=== PATIENT | female | born 1950 | race African-American/Black ===

== ENCOUNTER 2023-02-14 13:20 | Inpatient (IN) | payer MEDICARE, OTHER ==
[~2023-02-14] VITALS: Ht 167.6 cm; Wt 156.5 kg
[2023-02-14] VITALS (11 sets, daily range): BP systolic 96–131; BP diastolic 44–63; PULSE 75–84; RESP 16–18; TEMP 97.7–98.1; O2SAT 94–100
[2023-02-14 14:13] LABS: BASOPHILS # (AUTO) 0.1 K/uL (0.00-0.22); BASOPHILS % (AUTO) 0.4 % (0.0-2.0); EOSINOPHILS # (AUTO) 0.1 K/uL (0-0.4); EOSINOPHILS % (AUTO) 0.3 % (0.0-4.0); HEMATOCRIT 39.9 % (36-48); HEMOGLOBIN 12.2 g/dL (12.0-16.0); LYMPHOCYTES # (AUTO) 0.5 K/uL (2.5-16.5); LYMPHOCYTES % (AUTO) 3.4 % (20.5-51.1); MEAN CORPUSCULAR HEMOGLOBIN 32 pg (27-31); MEAN CORPUSCULAR HGB CONC 31 g/dL (33-37); MEAN CORPUSCULAR VOLUME 104.7 fL (80-94); MONOCYTES # (AUTO) 1.3 K/uL (0.8-1.0); NEUTROPHILS # (AUTO) 12.7 K/uL (1.8-7.7); NEUTROPHILS % (AUTO) 86.9 % (42.2-75.2); PLATELET COUNT (AUTO) 205 K/uL (140-450); RED BLOOD CELL COUNT(AUTO) 3.81 MIL/uL (4.20-5.40); RED CELL DISTRIBUTION WIDTH 16.2 % (11.6-13.7); WHITE BLOOD COUNT (AUTO) 14.7 K/uL (4.8-10.8)
[2023-02-14 14:22] LABS: ANION GAP 9.7 (8-16); CHLORIDE 96 mmol/L (98-107); CREATININE 3.8 mg/dL (0.6-1.3); GLUCOSE 194 mg/dL (74-106); POTASSIUM 3.7 mmol/L (3.5-5.1); SODIUM SERUM 134 mmol/L (136-145); UREA NITROGEN, BLOOD 38 mg/dL (7-18)
[2023-02-14 14:29] LABS: CREATINE KINASE, TOTAL 20 U/L (26-192)
[2023-02-14] MEDS ORDERED: VANCOMYCIN 1,000 MG in DEXTROSE 5% 250 ML IV ONE (14:35)
[2023-02-14] MEDS ORDERED: CEFEPIME 1,000 MG in DEXTROSE 5% 50 ML IV ONE (14:35)
[2023-02-14 14:39] LABS: BLOOD GAS PCO2 116.4 mmHg (35-45); BLOOD GAS PH 7.098 (7.35-7.45)
[2023-02-14 14:40] LABS: BLOOD GAS BASE EXCESS 1.9 mmol/L (-2.0-2.0); BLOOD GAS HCO3 35.2 mmol/L (22-26); BLOOD GAS O2 SAT% 93.9 % (92.0-98.5); BLOOD GAS PO2 73.3 mmHg (75-100)
[2023-02-14 15:02] LABS: ALBUMIN 2.6 g/dL (3.4-5.0); BILIRUBIN,DIRECT 0.1 mg/dL (0.0-0.3); TOTAL BILIRUBIN 0.3 mg/dL (0.0-1.0); TOTAL PROTEIN, SERUM 6.8 g/dL (6.4-8.2)
[2023-02-14 16:29] LABS: BLOOD GAS BASE EXCESS 4.9 mmol/L (-2.0-2.0); BLOOD GAS HCO3 26.6 mmol/L (22-26); BLOOD GAS O2 SAT% 99.1 % (92.0-98.5); BLOOD GAS PCO2 30.2 mmHg (35-45); BLOOD GAS PH 7.562 (7.35-7.45); BLOOD GAS PO2 106.6 mmHg (75-100)
[2023-02-14] MEDS ORDERED: VANCOMYCIN 1,000 MG VIAL ONE (17:04)
[2023-02-14] MEDS ORDERED: CEFEPIME 1,000 MG VIAL ONE (17:05)
[2023-02-14 17:37] LABS: LACTIC ACID 1.1 mmol/L (0.4-2.0)
[2023-02-14 17:40] LABS: FLU A ANTIGEN negative (NEGATIVE); FLU B ANTIGEN NEGATIVE (NEGATIVE)
[2023-02-14 17:58] LABS: INR 0.93 (0.8-1.2); PARTIAL THROMBOPLASTIN TIME 29.3 secs (22-35.6); PROTHROMBIN TIME 9.8 secs (10.8-13.4)
[2023-02-14] MEDS ORDERED: NACL 0.9% 500 ML IV ONE (18:25)
[2023-02-14] MEDS ORDERED: VANCOMYCIN PER PHARMACY MC PRN (18:45)
[2023-02-14] MEDS ORDERED: HYDROcodone/APAP 5/325 MG 1 TAB TAB PO PRN (18:45)
[2023-02-14] MEDS ORDERED: ACETAMINOPHEN 325 MG TAB PO PRN ×2 (18:45→18:55)
[2023-02-14] MEDS ORDERED: LORazepam 2 MG/ML VIAL IVP PRN (18:55)
[2023-02-14] MEDS ORDERED: POTASSIUM CHLORIDE 10 MEQ TABER PO PRN (18:55)
[2023-02-14] MEDS ORDERED: MAG SULF 2000 MG/WATER PREMIX 50 ML IV PRN (18:55)
[2023-02-14] MEDS ORDERED: ONDANSETRON 4 MG/2 ML VIAL IVP PRN (18:55)
[2023-02-14] MEDS ORDERED: DEXTROSE 50% 50 ML SYR IVP PRN (19:00)
[2023-02-14] MEDS: NACL 0.9% 1,000 ML IV SCH (20:44)
[2023-02-14] MEDS: BLOOD GLUCOSE MONITORING 1 DEV DEV FS SCH (21:00)
[2023-02-14 21:06] LABS: LACTIC ACID 3.5 mmol/L (0.4-2.0)
[2023-02-14 22:22] LABS: BLOOD GAS PCO2 31.4 mmHg (35-45); BLOOD GAS PH 7.552 (7.35-7.45); BLOOD GAS PO2 63.5 mmHg (75-100)
[2023-02-14 22:23] LABS: BLOOD GAS O2 SAT% 96.4 % (92.0-98.5)
[2023-02-15] VITALS (17 sets, daily range): BP systolic 88–133; BP diastolic 44–75; PULSE 69–90; RESP 16–33; TEMP 96.9–97.5; O2SAT 94–100
[2023-02-15 06:02] LABS: BASOPHILS # (AUTO) 0.1 K/uL (0.00-0.22); BASOPHILS % (AUTO) 0.7 % (0.0-2.0); EOSINOPHILS # (AUTO) 0.1 K/uL (0-0.4); EOSINOPHILS % (AUTO) 1.3 % (0.0-4.0); HEMATOCRIT 34.4 % (36-48); HEMOGLOBIN 11.3 g/dL (12.0-16.0); LYMPHOCYTES # (AUTO) 1.8 K/uL (2.5-16.5); LYMPHOCYTES % (AUTO) 16.6 % (20.5-51.1); MEAN CORPUSCULAR HEMOGLOBIN 33 pg (27-31); MEAN CORPUSCULAR HGB CONC 33 g/dL (33-37); MEAN CORPUSCULAR VOLUME 100.9 fL (80-94); MONOCYTES # (AUTO) 0.9 K/uL (0.8-1.0); MONOCYTES % (AUTO) 7.9 % (1.7-9.3); NEUTROPHILS # (AUTO) 7.9 K/uL (1.8-7.7); NEUTROPHILS % (AUTO) 73.5 % (42.2-75.2); PLATELET COUNT (AUTO) 206 K/uL (140-450); RED BLOOD CELL COUNT(AUTO) 3.41 MIL/uL (4.20-5.40); WHITE BLOOD COUNT (AUTO) 10.8 K/uL (4.8-10.8)
[2023-02-15 06:32] LABS: ALANINE AMINOTRANSFERASE 11 U/L (12-78); ALBUMIN 2.1 g/dL (3.4-5.0); ALKALINE PHOSPHATASE 107 U/L (50-136); ANION GAP 14.7 (8-16); ASPARTATE AMINOTRANSFERASE 13 U/L (15-37); CALCIUM 8.2 mg/dL (8.5-10.1); CARBON DIOXIDE 29.4 mmol/L (21-32); CHLORIDE 97 mmol/L (98-107); CREATININE 4.3 mg/dL (0.6-1.3); GLUCOSE 147 mg/dL (74-106); MAGNESIUM 2.8 mg/dL (1.8-2.4); PHOSPHORUS 1.2 mg/dL (2.5-4.9); POTASSIUM 3.1 mmol/L (3.5-5.1); SODIUM SERUM 138 mmol/L (136-145); TOTAL BILIRUBIN 0.6 mg/dL (0.0-1.0); TOTAL PROTEIN, SERUM 5.9 g/dL (6.4-8.2); UREA NITROGEN, BLOOD 45 mg/dL (7-18)
[2023-02-15 06:43] LABS: LACTIC ACID 1.8 mmol/L (0.4-2.0)
[2023-02-15] MEDS: BLOOD GLUCOSE MONITORING 1 DEV DEV FS SCH ×4 (07:55→21:13)
[2023-02-15] MEDS: INSULIN LISPRO SLIDING SCALE 100 UNITS/ML VIAL SUBQ PRN ×3 (07:56→21:14)
[2023-02-15] MEDS: NACL 0.9% 1,000 ML IV SCH ×2 (08:29→23:36)
[2023-02-15] MEDS ORDERED: CEFEPIME 1,000 MG in DEXTROSE 5% 50 ML IV SCH (09:00)
[2023-02-15] MEDS ORDERED: POTASSIUM PHOSPHATE 15 MM in NACL 0.9% 250 ML IV ONE (11:00)
[2023-02-15] MEDS: FLUDROCORTISONE 0.1 MG TAB PO SCH (11:33)
[2023-02-15] MEDS: MIDODRINE 5 MG TAB PO SCH ×2 (13:58→19:00)
[2023-02-15] MEDS: HYDROCORTISONE NA SUCC 100 MG/2 ML VIAL IV SCH ×2 (13:58→21:12)
[2023-02-15] MEDS ORDERED: VANCOMYCIN 750 MG in DEXTROSE 5% 250 ML IV SCH (18:00)
[2023-02-15] MEDS: POTASSIUM CHLORIDE 20% 40 MEQ/15 ML UDC GT PRN (18:06)
[2023-02-16] VITALS (11 sets, daily range): BP systolic 126–145; BP diastolic 59–77; PULSE 58–80; RESP 22–31; TEMP 96.1–98.4; O2SAT 93–100
[2023-02-16] MEDS: HYDROCORTISONE NA SUCC 100 MG/2 ML VIAL IV SCH ×2 (05:23→13:00)
[2023-02-16 06:13] LABS: BASOPHILS # (AUTO) 0.1 K/uL (0.00-0.22); BASOPHILS % (AUTO) 0.7 % (0.0-2.0); EOSINOPHILS % (AUTO) 0.1 % (0.0-4.0); HEMATOCRIT 34.4 % (36-48); HEMOGLOBIN 11.5 g/dL (12.0-16.0); LYMPHOCYTES # (AUTO) 1.3 K/uL (2.5-16.5); LYMPHOCYTES % (AUTO) 11.4 % (20.5-51.1); MEAN CORPUSCULAR HEMOGLOBIN 33 pg (27-31); MEAN CORPUSCULAR HGB CONC 34 g/dL (33-37); MONOCYTES # (AUTO) 0.6 K/uL (0.8-1.0); MONOCYTES % (AUTO) 5.2 % (1.7-9.3); NEUTROPHILS # (AUTO) 9.3 K/uL (1.8-7.7); NEUTROPHILS % (AUTO) 82.6 % (42.2-75.2); PLATELET COUNT (AUTO) 267 K/uL (140-450); RED BLOOD CELL COUNT(AUTO) 3.51 MIL/uL (4.20-5.40); RED CELL DISTRIBUTION WIDTH 15.7 % (11.6-13.7); WHITE BLOOD COUNT (AUTO) 11.3 K/uL (4.8-10.8)
[2023-02-16] MEDS: LEVOTHYROXINE 0.1 MG TAB PO SCH (06:21)
[2023-02-16] MEDS: MIDODRINE 5 MG TAB PO SCH ×3 (06:26→20:00)
[2023-02-16 06:44] LABS: ALANINE AMINOTRANSFERASE 12 U/L (12-78); ALBUMIN 2.3 g/dL (3.4-5.0); ALKALINE PHOSPHATASE 110 U/L (50-136); ANION GAP 19.9 (8-16); ASPARTATE AMINOTRANSFERASE 20 U/L (15-37); CALCIUM 8.2 mg/dL (8.5-10.1); CARBON DIOXIDE 24.5 mmol/L (21-32); CHLORIDE 95 mmol/L (98-107); GLUCOSE 186 mg/dL (74-106); POTASSIUM 3.4 mmol/L (3.5-5.1); SODIUM SERUM 136 mmol/L (136-145); TOTAL BILIRUBIN 0.5 mg/dL (0.0-1.0); TOTAL PROTEIN, SERUM 6.8 g/dL (6.4-8.2); UREA NITROGEN, BLOOD 55 mg/dL (7-18)
[2023-02-16] MEDS: BLOOD GLUCOSE MONITORING 1 DEV DEV FS SCH ×3 (06:48→16:30)
[2023-02-16] MEDS: INSULIN LISPRO SLIDING SCALE 100 UNITS/ML VIAL SUBQ PRN (06:49)
[2023-02-16 07:57] LABS: CREATININE 4.6 mg/dL (0.6-1.3)
[2023-02-16] MEDS: CEFEPIME 1,000 MG in DEXTROSE 5% 50 ML IV SCH (08:51)
[2023-02-16] MEDS: AMIODARONE 200 MG TAB PO SCH (08:52)
[2023-02-16] MEDS: ATORVASTATIN 80 MG TAB PO SCH (08:53)
[2023-02-16] MEDS: PANTOPRAZOLE 40 MG TABEC PO SCH (08:53)
[2023-02-16] MEDS: FLUDROCORTISONE 0.1 MG TAB PO SCH (08:53)
[2023-02-16] MEDS: POTASSIUM CHLORIDE 20% 40 MEQ/15 ML UDC GT PRN (08:54)
[2023-02-16] MEDS ORDERED: HYDRAGUARD CREAM TP PRN (12:25)
[2023-02-16] MEDS ORDERED: FOAM DRESSING TP PRN (12:25)
[2023-02-16] MEDS ORDERED: NYSTATIN POW 100 MU/GM 15 GM BTL TP PRN (12:25)
[2023-02-16] MEDS: NYSTATIN POW 100 MU/GM 15 GM BTL TP SCH (13:00)
[2023-02-16] MEDS: HYDRAGUARD CREAM TP SCH (13:00)
[2023-02-16] MEDS ORDERED: POTASSIUM PHOSPHATE 15 MM in NACL 0.9% 250 ML IV SCH (13:00)
[2023-02-16] MEDS: FOAM DRESSING TP SCH (13:00)
[2023-02-17] VITALS (15 sets, daily range): BP systolic 106–135; BP diastolic 54–72; PULSE 61–94; RESP 18–32; TEMP 97.1–98.7; O2SAT 98–100
[2023-02-17] MEDS: HYDROCORTISONE NA SUCC 100 MG/2 ML VIAL IV SCH ×2 (00:17→06:11)
[2023-02-17] MEDS: BLOOD GLUCOSE MONITORING 1 DEV DEV FS SCH ×4 (00:17→18:04)
[2023-02-17] MEDS: INSULIN LISPRO SLIDING SCALE 100 UNITS/ML VIAL SUBQ PRN ×3 (00:19→15:21)
[2023-02-17] MEDS: NYSTATIN POW 100 MU/GM 15 GM BTL TP SCH ×2 (01:00→13:00)
[2023-02-17] MEDS: HYDRAGUARD CREAM TP SCH ×2 (01:53→13:58)
[2023-02-17] MEDS: LEVOTHYROXINE 0.1 MG TAB PO SCH (06:12)
[2023-02-17 06:58] LABS: BASOPHILS % (AUTO) 0.5 % (0.0-2.0); EOSINOPHILS # (AUTO) 0.1 K/uL (0-0.4); EOSINOPHILS % (AUTO) 1.7 % (0.0-4.0); HEMATOCRIT 30.5 % (36-48); HEMOGLOBIN 10.1 g/dL (12.0-16.0); LYMPHOCYTES # (AUTO) 1.4 K/uL (2.5-16.5); LYMPHOCYTES % (AUTO) 17.8 % (20.5-51.1); MEAN CORPUSCULAR HEMOGLOBIN 32 pg (27-31); MEAN CORPUSCULAR HGB CONC 33 g/dL (33-37); MEAN CORPUSCULAR VOLUME 96.8 fL (80-94); MONOCYTES # (AUTO) 0.5 K/uL (0.8-1.0); NEUTROPHILS # (AUTO) 5.6 K/uL (1.8-7.7); PLATELET COUNT (AUTO) 220 K/uL (140-450); RED BLOOD CELL COUNT(AUTO) 3.15 MIL/uL (4.20-5.40); RED CELL DISTRIBUTION WIDTH 15.6 % (11.6-13.7); WHITE BLOOD COUNT (AUTO) 7.6 K/uL (4.8-10.8)
[2023-02-17 07:47] LABS: ALANINE AMINOTRANSFERASE 19 U/L (12-78); ALKALINE PHOSPHATASE 89 U/L (50-136); ASPARTATE AMINOTRANSFERASE 21 U/L (15-37); CALCIUM 7.7 mg/dL (8.5-10.1); CARBON DIOXIDE 25.1 mmol/L (21-32); CHLORIDE 97 mmol/L (98-107); GLUCOSE 215 mg/dL (74-106); POTASSIUM 3.1 mmol/L (3.5-5.1); SODIUM SERUM 136 mmol/L (136-145); TOTAL BILIRUBIN 0.4 mg/dL (0.0-1.0); TOTAL PROTEIN, SERUM 5.8 g/dL (6.4-8.2)
[2023-02-17 07:53] LABS: UREA NITROGEN, BLOOD 65 mg/dL (7-18)
[2023-02-17] MEDS ORDERED: POTASSIUM CHLORIDE 10 MEQ TABER PO SCH (08:47)
[2023-02-17] MEDS ORDERED: MUPIROCIN CA NASAL 2% 1GM TUBE NS SCH (09:00)
[2023-02-17] MEDS ORDERED: VANCOMYCIN 1,000 MG in DEXTROSE 5% 250 ML IV SCH (09:00)
[2023-02-17] MEDS ORDERED: HYDROCORTISONE 10 MG TAB PO SCH (09:00)
[2023-02-17] MEDS ORDERED: CHLORHEXADINE GLUC 2% CLOTH TP SCH (09:00)
[2023-02-17] MEDS: CEFEPIME 1,000 MG in DEXTROSE 5% 50 ML IV SCH (09:36)
[2023-02-17] MEDS: MIDODRINE 5 MG TAB PO SCH ×3 (09:36→19:00)
[2023-02-17] MEDS: ATORVASTATIN 80 MG TAB PO SCH (09:37)
[2023-02-17] MEDS: FLUDROCORTISONE 0.1 MG TAB PO SCH (09:37)
[2023-02-17] MEDS: PANTOPRAZOLE 40 MG TABEC PO SCH (09:37)
[2023-02-17] MEDS: AMIODARONE 200 MG TAB PO SCH (09:37)
[2023-02-17] MEDS ORDERED: VANC1FRO IV (10:57)
[2023-02-17] MEDS ORDERED: GLUC-805 FS (10:57)
[2023-02-17] MEDS ORDERED: PANT40EC56 PO (10:57)
[2023-02-17] MEDS ORDERED: MYCPWD TP (10:57)
[2023-02-17] MEDS ORDERED: FLO.1 PO (10:57)
[2023-02-17] MEDS ORDERED: HYDR-3926 PO (10:57)
[2023-02-17] MEDS ORDERED: HUMSLIDE SUBQ (10:57)
[2023-02-17] MEDS ORDERED: PRO5 PO (10:57)
[2023-02-17] MEDS ORDERED: LIP80 PO (10:57)
[2023-02-17] MEDS ORDERED: SYN.1 PO (10:57)
[2023-02-17] MEDS ORDERED: LORA2VIA2 IVP (10:57)
[2023-02-17] MEDS ORDERED: AMIO200T10 PO (10:57)
[2023-02-17] MEDS ORDERED: ACET-1182 PO (10:57)
[2023-02-17] MEDS ORDERED: CEFE1SOL IV (10:57)
[2023-02-17] MEDS: FOAM DRESSING TP SCH (13:58)
== END 2023-02-17 20:30 | disposition short-term general hospital (02) | DRG 871 ==
LOC: MED 13:20 → MIC 19:59 → MTU 02-15 19:17
PROVIDERS: ADMIT Family Medicine; ATTEND Family Medicine
PROC: 5A1945Z Respiratory Ventilation, 24-96 Consecutive Hours (ICD-10-PCS; principal; 2023-02-14)
PROC: 5A1D70Z Performance of Urinary Filtration, Intermittent, Less than 6 Hours Per Day (ICD-10-PCS; 2023-02-16)
PROC: 5A1D70Z Performance of Urinary Filtration, Intermittent, Less than 6 Hours Per Day (ICD-10-PCS; 2023-02-17)
DX: A41.9 Sepsis, unspecified organism (principal); J18.9 Pneumonia, unspecified organism; J96.22 Acute and chronic respiratory failure with hypercapnia; N18.6 End stage renal disease; J96.21 Acute and chronic respiratory failure with hypoxia; G93.40 Encephalopathy, unspecified; Z99.11 Dependence on respirator [ventilator] status; E87.20 Acidosis, unspecified; E87.1 Hypo-osmolality and hyponatremia; E46 Unspecified protein-calorie malnutrition; Z68.43 Body mass index [BMI] 50.0-59.9, adult; Z20.822 Contact with and (suspected) exposure to COVID-19; R13.10 Dysphagia, unspecified; R73.9 Hyperglycemia, unspecified; E78.5 Hyperlipidemia, unspecified; Z99.2 Dependence on renal dialysis; Z88.1 Allergy status to other antibiotic agents; Z88.5 Allergy status to narcotic agent; Z88.8 Allergy status to other drugs, medicaments and biological substances; Z79.899 Other long term (current) drug therapy; Z93.0 Tracheostomy status
CPT/HCPCS: 36415; 36600; 70450; 71045; 80048; 80053; 80076; 80202; 82550; 82803; 82948; 83605; 83735; 83880; 84100; 84484; 85025; 85610; 85730; 87040; 87081; 93005; 94003; 96365; 96368; 99291; J0692; J1644; J1720; J1815; J2060; J3370; J7030; J7060

== ENCOUNTER 2023-07-19 20:22 | Inpatient (IN) | payer MEDICARE, OTHER ==
[~2023-07-19] VITALS: Ht 165.1 cm; Wt 157.9 kg
[~2023-07-19 20:22] MED LIST: ACET-1182 PO; AMIO200T10 PO; CEFE1SOL IV; FLO.1 PO; GLUC-805 FS; HUMSLIDE SUBQ; HYDR-3926 PO; LIP80 PO; LORA2VIA2 IVP; MYCPWD TP; PANT40EC56 PO; PRO5 PO; SYN.1 PO; VANC1FRO IV
[2023-07-19 20:31] VITALS: BP 125/54; PULSE 84; RESP 21; TEMP 97.6; O2SAT 100
[2023-07-19 20:34] VITALS: BP 125/54; PULSE 83; PULSE 84; RESP 20; O2SAT 99
[2023-07-19 22:07] LABS: BASOPHILS % (AUTO) 0.2 % (0.0-2.0); EOSINOPHILS # (AUTO) 0.2 K/uL (0-0.4); EOSINOPHILS % (AUTO) 1.1 % (0.0-4.0); HEMATOCRIT 31.4 % (36-48); HEMOGLOBIN 9.8 g/dL (12.0-16.0); LYMPHOCYTES # (AUTO) 1.3 K/uL (2.5-16.5); LYMPHOCYTES % (AUTO) 6.4 % (20.5-51.1); MEAN CORPUSCULAR HEMOGLOBIN 32 pg (27-31); MEAN CORPUSCULAR HGB CONC 31 g/dL (33-37); MEAN CORPUSCULAR VOLUME 101.1 fL (80-94); MONOCYTES # (AUTO) 0.5 K/uL (0.8-1.0); MONOCYTES % (AUTO) 2.5 % (1.7-9.3); NEUTROPHILS % (AUTO) 89.8 % (42.2-75.2); PLATELET COUNT (AUTO) 344 K/uL (140-450); RED CELL DISTRIBUTION WIDTH 15.9 % (11.6-13.7); WHITE BLOOD COUNT (AUTO) 21.1 K/uL (4.8-10.8)
[2023-07-19 22:25] LABS: ANION GAP 12.4 (8-16); CALCIUM 8.2 mg/dL (8.5-10.1); CARBON DIOXIDE 29.3 mmol/L (21-32); CHLORIDE 100 mmol/L (98-107); CREATININE 3.4 mg/dL (0.6-1.3); GLUCOSE 168 mg/dL (74-106); POTASSIUM 3.7 mmol/L (3.5-5.1); SODIUM SERUM 138 mmol/L (136-145); UREA NITROGEN, BLOOD 59 mg/dL (7-18)
[2023-07-19 22:28] LABS: BLOOD GAS PCO2 48.6 mmHg (35-45); BLOOD GAS PH 7.379 (7.35-7.45)
[2023-07-19 22:29] LABS: BLOOD GAS BASE EXCESS 2.3 mmol/L (-2.0-2.0); BLOOD GAS O2 SAT% 97.8 % (92.0-98.5); BLOOD GAS PO2 100.8 mmHg (75-100)
[2023-07-19 22:35] LABS: LACTIC ACID 1.2 mmol/L (0.4-2.0)
[2023-07-19 22:38] VITALS: PULSE 80; O2SAT 100
[2023-07-19 22:44] LABS: BILIRUBIN,DIRECT 0.1 mg/dL (0.0-0.3); TOTAL BILIRUBIN 0.3 mg/dL (0.0-1.0)
[2023-07-19 22:45] LABS: ALBUMIN 1.6 g/dL (3.4-5.0); TOTAL PROTEIN, SERUM 6.4 g/dL (6.4-8.2)
[2023-07-20] VITALS (14 sets, daily range): BP systolic 104–106; BP diastolic 45–58; PULSE 78–96; RESP 12; TEMP 97.8; O2SAT 94–100
[2023-07-20] MEDS ORDERED: CEFEPIME 2,000 MG VIAL IV ONE (00:45)
[2023-07-20] MEDS: CEFEPIME 2,000 MG in DEXTROSE 5% 100 ML IV ONE (01:18)
[2023-07-20] MEDS: NACL 0.9% 500 ML IV ONE (02:09)
[2023-07-20] MEDS: ACETAMINOPHEN 650 MG/20.3 ML UDC GT ONE (02:09)
[2023-07-20] MEDS ORDERED: ACETAMINOPHEN 325 MG TAB PO PRN (03:45)
[2023-07-20] MEDS ORDERED: VANCOMYCIN PER PHARMACY MC PRN (04:00)
[2023-07-20] MEDS: NACL 0.9% 1,000 ML IV SCH (04:13)
[2023-07-20] MEDS: NACL 0.9% 1,000 ML IV ONE (04:23)
[2023-07-20] MEDS ORDERED: MEROPENEM 1,000 MG VIAL IV ONE (05:51)
[2023-07-20] MEDS: MEROPENEM 1,000 MG in NACL 0.9% 50 ML IV SCH (05:53)
[2023-07-20 08:16] LABS: HEMATOCRIT 31.7 % (36-48); HEMOGLOBIN 9.7 g/dL (12.0-16.0); MEAN CORPUSCULAR HEMOGLOBIN 31 pg (27-31); MEAN CORPUSCULAR HGB CONC 31 g/dL (33-37); MEAN CORPUSCULAR VOLUME 102.5 fL (80-94); PLATELET COUNT (AUTO) 345 K/uL (140-450); WHITE BLOOD COUNT (AUTO) 18.9 K/uL (4.8-10.8)
[2023-07-20 08:38] LABS: ALANINE AMINOTRANSFERASE 61 U/L (12-78); ALBUMIN 0.7 g/dL (3.4-5.0); ALKALINE PHOSPHATASE 231 U/L (50-136); ANION GAP 16.7 (8-16); ASPARTATE AMINOTRANSFERASE 52 U/L (15-37); CARBON DIOXIDE 18.6 mmol/L (21-32); CHLORIDE 115 mmol/L (98-107); CREATININE 2.1 mg/dL (0.6-1.3); GLUCOSE 109 mg/dL (74-106); POTASSIUM 3.3 mmol/L (3.5-5.1); SODIUM SERUM 147 mmol/L (136-145); TOTAL BILIRUBIN 0.3 mg/dL (0.0-1.0); TOTAL PROTEIN, SERUM 3.8 g/dL (6.4-8.2); UREA NITROGEN, BLOOD 39 mg/dL (7-18)
[2023-07-20 08:48] LABS: CALCIUM 4.6 mg/dL (8.5-10.1)
[2023-07-20] MEDS ORDERED: ENOXAPARIN 40 MG/0.4 ML SYR SUBQ SCH (09:00)
[2023-07-20 09:12] LABS: BASOPHILS % (MANUAL) 0 % (0-2); BLASTS, MANUAL % 0 % (0-0); EOSINOPHILS % (MANUAL) 3 % (0-4); LYMPHOCYTES % (MANUAL) 7 % (20-46); METAMYELOCYTES % 0 % (0-0); MONOCYTES % (MANUAL) 2 % (5-12); MYELOCYTES % 0 % (0-0); OTHER CELLS,MANUAL % 0 (0-0); PROMYELOCYTES % 0 % (0-0)
[2023-07-20] MEDS ORDERED: CALCIUM GLUCONATE 10% 1,000 MG in NACL 0.9% 50 ML IV SCH (09:58)
[2023-07-20] MEDS ORDERED: CALCIUM GLUC 1 GM/50 mL NS BAG 50 ML IV ONE (10:58)
[2023-07-20] MEDS: CALCIUM GLUC 1 GM/50 mL NS BAG 50 ML IV SCH (11:17)
[2023-07-20] MEDS ORDERED: CRUSHER, PILL MC ONE (12:13)
[2023-07-20] MEDS: VANCOMYCIN 1,000 MG in DEXTROSE 5% 250 ML IV SCH (12:14)
[2023-07-20] MEDS: ACETAMINOPHEN 325 MG TAB GT PRN (12:29)
[2023-07-20] MEDS ORDERED: NYSTATIN POW 100 MU/GM 15 GM BTL TP PRN (14:50)
[2023-07-20] MEDS ORDERED: HYDRAGUARD CREAM TP PRN (14:50)
[2023-07-20] MEDS: GABAPENTIN 100 MG CAP GT SCH (15:07)
[2023-07-20] MEDS ORDERED: MEROPENEM 1,000 MG in NACL 0.9% 50 ML IV SCH (18:00)
[2023-07-20] MEDS ORDERED: DEXTROSE 50% 50 ML SYR IVP PRN (18:05)
[2023-07-20] MEDS ORDERED: MIDODRINE 5 MG TAB PO SCH (19:00)
[2023-07-20] MEDS: BLOOD GLUCOSE MONITORING 1 DEV DEV FS SCH (21:51)
[2023-07-20] MEDS: INSULIN LISPRO SLIDING SCALE 100 UNITS/ML VIAL SUBQ PRN (21:56)
[2023-07-20] MEDS: ACETAMINOPHEN 100 ML IV PRN (22:50)
[2023-07-21] VITALS (34 sets, daily range): BP systolic 68–179; BP diastolic 33–123; PULSE 60–95; RESP 12–24; TEMP 96.7–98.2; O2SAT 92–100
[2023-07-21] MEDS: NOREPINEPHRINE 4 MG in DEXTROSE 5% 250 ML IV PRN (00:50)
[2023-07-21] MEDS: NYSTATIN POW 100 MU/GM 15 GM BTL TP SCH (01:00)
[2023-07-21] MEDS: NOREPINEPHRINE 4 MG/4 ML VIAL IV ONE (01:40)
[2023-07-21] MEDS: HYDRAGUARD CREAM TP SCH (02:27)
[2023-07-21] MEDS ORDERED: MEROPENEM 500 MG VIAL IV ONE (05:55)
[2023-07-21] MEDS: MEROPENEM 500 MG in NACL 0.9% 50 ML IV SCH (06:03)
[2023-07-21] MEDS: MIDODRINE 5 MG TAB GT SCH (06:03)
[2023-07-21] MEDS: LEVOTHYROXINE 0.1 MG TAB PO SCH (06:03)
[2023-07-21 07:55] LABS: BASOPHILS % (AUTO) 0.2 % (0.0-2.0); EOSINOPHILS # (AUTO) 0.4 K/uL (0-0.4); EOSINOPHILS % (AUTO) 2.2 % (0.0-4.0); HEMOGLOBIN 10.9 g/dL (12.0-16.0); LYMPHOCYTES # (AUTO) 1.5 K/uL (2.5-16.5); LYMPHOCYTES % (AUTO) 8.2 % (20.5-51.1); MEAN CORPUSCULAR HEMOGLOBIN 32 pg (27-31); MEAN CORPUSCULAR HGB CONC 32 g/dL (33-37); MONOCYTES # (AUTO) 0.7 K/uL (0.8-1.0); MONOCYTES % (AUTO) 3.7 % (1.7-9.3); NEUTROPHILS # (AUTO) 15.7 K/uL (1.8-7.7); NEUTROPHILS % (AUTO) 85.7 % (42.2-75.2); PLATELET COUNT (AUTO) 382 K/uL (140-450); RED CELL DISTRIBUTION WIDTH 15.8 % (11.6-13.7); WHITE BLOOD COUNT (AUTO) 18.3 K/uL (4.8-10.8)
[2023-07-21 08:16] LABS: ALANINE AMINOTRANSFERASE 66 U/L (12-78); ALBUMIN 1.5 g/dL (3.4-5.0); ALKALINE PHOSPHATASE 355 U/L (50-136); ANION GAP 12.4 (8-16); ASPARTATE AMINOTRANSFERASE 35 U/L (15-37); CALCIUM 7.7 mg/dL (8.5-10.1); CARBON DIOXIDE 27.9 mmol/L (21-32); CHLORIDE 98 mmol/L (98-107); CREATININE 2.8 mg/dL (0.6-1.3); GLUCOSE 186 mg/dL (74-106); MAGNESIUM 2.3 mg/dL (1.8-2.4); PHOSPHORUS 1.4 mg/dL (2.5-4.9); POTASSIUM 4.3 mmol/L (3.5-5.1); SODIUM SERUM 134 mmol/L (136-145); TOTAL BILIRUBIN 0.4 mg/dL (0.0-1.0); TOTAL PROTEIN, SERUM 6.3 g/dL (6.4-8.2); UREA NITROGEN, BLOOD 41 mg/dL (7-18)
[2023-07-21] MEDS: PANTOPRAZOLE 40 MG INJ VIAL IVP SCH (09:39)
[2023-07-21] MEDS: ATORVASTATIN 80 MG TAB PO SCH (09:40)
[2023-07-21] MEDS: AMIODARONE 200 MG TAB PO SCH (09:42)
[2023-07-21] MEDS: SODIUM PHOSPHATE 15 MMOLE in NACL 0.9% 250 ML IV SCH (12:27)
[2023-07-21] MEDS: MIDODRINE 5 MG TAB PO SCH (13:23)
[2023-07-21 15:06] LABS: HEPATITIS A ANTIBODY IGM Negative (Negative); HEPATITIS A ANTIBODY TOTAL Negative (Negative); HEPATITIS B CORE AB TOTAL Negative (Negative); HEPATITIS B CORE, IGM Negative (Negative); HEPATITIS B SURFACE ANTIBODY Non Reactive (.); HEPATITIS B SURFACE ANTIGEN Negative (Negative); HEPATITIS C VIRUS ANTIBODY Non Reactive (Non Reactive)
[2023-07-22] VITALS (17 sets, daily range): BP systolic 88–135; BP diastolic 44–112; PULSE 69–98; RESP 12–21; TEMP 97–97.8; O2SAT 91–100
[2023-07-22 06:12] LABS: BASOPHILS # (AUTO) 0.5 K/uL (0.00-0.22); EOSINOPHILS # (AUTO) 0.4 K/uL (0-0.4); HEMATOCRIT 30.2 % (36-48); HEMOGLOBIN 9.6 g/dL (12.0-16.0); LYMPHOCYTES # (AUTO) 0.6 K/uL (2.5-16.5); LYMPHOCYTES % (AUTO) 4.2 % (20.5-51.1); MEAN CORPUSCULAR HEMOGLOBIN 32 pg (27-31); MEAN CORPUSCULAR HGB CONC 32 g/dL (33-37); MEAN CORPUSCULAR VOLUME 101.5 fL (80-94); MONOCYTES # (AUTO) 0.5 K/uL (0.8-1.0); MONOCYTES % (AUTO) 3.7 % (1.7-9.3); NEUTROPHILS # (AUTO) 12.8 K/uL (1.8-7.7); NEUTROPHILS % (AUTO) 86.1 % (42.2-75.2); PLATELET COUNT (AUTO) 387 K/uL (140-450); RED BLOOD CELL COUNT(AUTO) 2.97 MIL/uL (4.20-5.40); RED CELL DISTRIBUTION WIDTH 16.1 % (11.6-13.7); WHITE BLOOD COUNT (AUTO) 14.9 K/uL (4.8-10.8)
[2023-07-22 06:48] LABS: ANION GAP 10.3 (8-16); CALCIUM 7.3 mg/dL (8.5-10.1); CARBON DIOXIDE 30.3 mmol/L (21-32); CHLORIDE 99 mmol/L (98-107); CREATININE 3.1 mg/dL (0.6-1.3); GLUCOSE 194 mg/dL (74-106); POTASSIUM 3.6 mmol/L (3.5-5.1); SODIUM SERUM 136 mmol/L (136-145); UREA NITROGEN, BLOOD 46 mg/dL (7-18)
[2023-07-22] MEDS: ACETAMINOPHEN 650 MG/20.3 ML UDC ONE (18:48)
[2023-07-23] VITALS (16 sets, daily range): BP systolic 98–134; BP diastolic 43–66; PULSE 66–101; RESP 12–19; TEMP 97.1–98.3; O2SAT 95–100
[2023-07-23 05:35] LABS: BASOPHILS % (AUTO) 0.4 % (0.0-2.0); EOSINOPHILS # (AUTO) 0.4 K/uL (0-0.4); EOSINOPHILS % (AUTO) 3.9 % (0.0-4.0); HEMATOCRIT 28.9 % (36-48); HEMOGLOBIN 9.2 g/dL (12.0-16.0); LYMPHOCYTES # (AUTO) 1.4 K/uL (2.5-16.5); LYMPHOCYTES % (AUTO) 12.4 % (20.5-51.1); MEAN CORPUSCULAR HEMOGLOBIN 33 pg (27-31); MEAN CORPUSCULAR HGB CONC 32 g/dL (33-37); MEAN CORPUSCULAR VOLUME 101.9 fL (80-94); MONOCYTES # (AUTO) 0.6 K/uL (0.8-1.0); MONOCYTES % (AUTO) 5.1 % (1.7-9.3); NEUTROPHILS # (AUTO) 8.8 K/uL (1.8-7.7); NEUTROPHILS % (AUTO) 78.2 % (42.2-75.2); PLATELET COUNT (AUTO) 422 K/uL (140-450); RED BLOOD CELL COUNT(AUTO) 2.83 MIL/uL (4.20-5.40); RED CELL DISTRIBUTION WIDTH 16.1 % (11.6-13.7); WHITE BLOOD COUNT (AUTO) 11.2 K/uL (4.8-10.8)
[2023-07-23 05:56] LABS: CALCIUM 7.5 mg/dL (8.5-10.1); CARBON DIOXIDE 28.5 mmol/L (21-32); CHLORIDE 97 mmol/L (98-107); CREATININE 3.5 mg/dL (0.6-1.3); GLUCOSE 219 mg/dL (74-106); POTASSIUM 3.5 mmol/L (3.5-5.1); SODIUM SERUM 135 mmol/L (136-145); UREA NITROGEN, BLOOD 58 mg/dL (7-18)
[2023-07-23] MEDS ORDERED: NON ADHERENT DRESSING TP PRN (14:50)
[2023-07-23] MEDS: VANCOMYCIN 1,000 MG in DEXTROSE 5% 250 ML IV SCH (17:46)
[2023-07-24] VITALS (12 sets, daily range): BP systolic 107–128; BP diastolic 56–61; PULSE 60–95; RESP 12; TEMP 97.5–98.3; O2SAT 97–99
[2023-07-24] MEDS: INSULIN LANTUS 100 UNITS/ML 10 ML VIAL SUBQ SCH (02:41)
[2023-07-24 06:56] LABS: ANION GAP 10.8 (8-16); CALCIUM 7.8 mg/dL (8.5-10.1); CHLORIDE 96 mmol/L (98-107); CREATININE 3.2 mg/dL (0.6-1.3); GLUCOSE 232 mg/dL (74-106); POTASSIUM 3.8 mmol/L (3.5-5.1); SODIUM SERUM 133 mmol/L (136-145); UREA NITROGEN, BLOOD 52 mg/dL (7-18)
[2023-07-24 10:30] LABS: HEMATOCRIT 30.1 % (36-48); HEMOGLOBIN 9.5 g/dL (12.0-16.0); MEAN CORPUSCULAR HEMOGLOBIN 32 pg (27-31); MEAN CORPUSCULAR HGB CONC 32 g/dL (33-37); MEAN CORPUSCULAR VOLUME 101.1 fL (80-94); PLATELET COUNT (AUTO) 455 K/uL (140-450); RED BLOOD CELL COUNT(AUTO) 2.98 MIL/uL (4.20-5.40); RED CELL DISTRIBUTION WIDTH 16.2 % (11.6-13.7)
[2023-07-24 10:52] LABS: LYMPHOCYTES % (MANUAL) 14 % (20-46); MONOCYTES % (MANUAL) 5 % (5-12)
[2023-07-24 10:53] LABS: BASOPHILS % (MANUAL) 0 % (0-2); BLASTS, MANUAL % 0 % (0-0); EOSINOPHILS % (MANUAL) 4 % (0-4); METAMYELOCYTES % 0 % (0-0); MYELOCYTES % 0 % (0-0); OTHER CELLS,MANUAL % 0 (0-0); PLASMA CELLS 0; PROMYELOCYTES % 0 % (0-0); SMUDGE CELLS 0
[2023-07-24 10:54] LABS: PLATELET ESTIMATE INCREASED
[2023-07-24 11:02] LABS: ALANINE AMINOTRANSFERASE 96 U/L (12-78); ALBUMIN 1.6 g/dL (3.4-5.0); ALKALINE PHOSPHATASE 239 U/L (50-136); ANION GAP 9.8 (8-16); ASPARTATE AMINOTRANSFERASE 66 U/L (15-37); CALCIUM 7.7 mg/dL (8.5-10.1); CARBON DIOXIDE 29.9 mmol/L (21-32); CHLORIDE 97 mmol/L (98-107); CREATININE 3.3 mg/dL (0.6-1.3); GLUCOSE 221 mg/dL (74-106); POTASSIUM 3.7 mmol/L (3.5-5.1); SODIUM SERUM 133 mmol/L (136-145); TOTAL BILIRUBIN 0.2 mg/dL (0.0-1.0); TOTAL PROTEIN, SERUM 5.7 g/dL (6.4-8.2); UREA NITROGEN, BLOOD 56 mg/dL (7-18)
[2023-07-24] MEDS: LIDOCAINE 5% 1 EA PATCH TP SCH (11:51)
[2023-07-24] MEDS: NON ADHERENT DRESSING TP SCH (13:40)
[2023-07-24] MEDS: ACETAMINOPHEN 650 MG/20.3 ML UDC PO PRN (15:06)
== END 2023-07-24 20:30 | disposition short-term general hospital (02) | DRG 207 ==
LOC: MED 20:22 → MTU 07-20 03:45 → MIC 07-20 05:37 → MMU 07-20 11:42 → MTU 07-20 16:43 → MIC 07-21 00:19 → MMU 07-23 06:45
PROVIDERS: ADMIT Student in an Organized Health Care Education/Training Program; ATTEND Student in an Organized Health Care Education/Training Program
PROC: 5A1955Z Respiratory Ventilation, Greater than 96 Consecutive Hours (ICD-10-PCS; principal; 2023-07-19)
PROC: 5A1D70Z Performance of Urinary Filtration, Intermittent, Less than 6 Hours Per Day (ICD-10-PCS; 2023-07-20)
PROC: 02HV33Z Insertion of Infusion Device into Superior Vena Cava, Percutaneous Approach (ICD-10-PCS; 2023-07-21)
PROC: B548ZZA Ultrasonography of Superior Vena Cava, Guidance (ICD-10-PCS; 2023-07-21)
PROC: 5A1D70Z Performance of Urinary Filtration, Intermittent, Less than 6 Hours Per Day (ICD-10-PCS; 2023-07-23)
DX: J15.69 Pneumonia due to other Gram-negative bacteria (principal); E43 Unspecified severe protein-calorie malnutrition; N18.6 End stage renal disease; E87.0 Hyperosmolality and hypernatremia; Z68.43 Body mass index [BMI] 50.0-59.9, adult; J44.0 Chronic obstructive pulmonary disease with (acute) lower respiratory infection; J96.10 Chronic respiratory failure, unspecified whether with hypoxia or hypercapnia; J15.9 Unspecified bacterial pneumonia; D72.829 Elevated white blood cell count, unspecified; Z99.2 Dependence on renal dialysis; E83.51 Hypocalcemia; E66.01 Morbid (severe) obesity due to excess calories; E78.5 Hyperlipidemia, unspecified; K21.9 Gastro-esophageal reflux disease without esophagitis; I89.0 Lymphedema, not elsewhere classified; E87.6 Hypokalemia; D64.9 Anemia, unspecified; Z88.8 Allergy status to other drugs, medicaments and biological substances; Z79.01 Long term (current) use of anticoagulants; Z79.899 Other long term (current) drug therapy; Z93.0 Tracheostomy status
CPT/HCPCS: 36415; 36600; 71045; 76705; 80048; 80053; 80076; 80202; 82728; 82803; 82948; 82977; 83540; 83605; 83735; 83880; 84100; 85025; 86704; 86706; 86708; 86709; 86803; 87040; 87081; 87340; 90935; 93970; 94003; 96361; 96365; 99285; C9113; J0610; J0692; J1644; J1815; J2185; J3370; J3490; J7030; J7060; Q0092